=== PATIENT | female | born 1985 ===

== ENCOUNTER 2021-10-28 15:37 | Emergency (ER) | payer BC ==
[2021-10-28] MEDS ORDERED: AMOXICILLIN/K CLAV 875/125MG TAB PO ONE (19:23)
[2021-10-28] MEDS ORDERED: predniSONE 20 MG TAB PO ONE (19:24)
--- NOTE | 2021-10-28 19:27 | Emergency Department Report ---
ED ENT HPI - General Chief complaint: Medical Clearance Stated complaint: FLU LIKE SX Time Seen by Provider: 10/28/21 18:55 Source: patient Mode of arrival: Ambulatory Limitations: No Limitations - History of Present Illness Initial comments: 36-year-old white female with a past medical history of hypothyroidism presents to the emergency department for evaluation of few day history of fever, sore throat, left ear pain. She states that she went to urgent care yesterday for same symptoms and they did a COVID test and EKG, and told her that she had an abnormal EKG and she should report to the emergency department immediately. Patient denies chest pain, shortness of breath, nausea, vomiting, dizziness, and diaphoresis. MD complaint: sore throat, ear pain -: Gradual, week(s) (1) Location: L ear Severity: mild Severity scale (0 -10): 10 Quality: aching Consistency: constant Improves with: pressure Associated Symptoms: fever, cough, pain with swallowing, sore throat, discharge from ear, rhinorrhea. denies: gum swelling, toothache, tinnitus, hearing loss - Related Data Previous Rx's Medication Instructions Recorded Last Taken Type Amoxicillin/Potassium Clav 1 each PO BID #14 tab 10/28/21 Unknown Rx [Augmentin 875-125 Tablet] methylPREDNISolone [Medrol 4MG 4 mg PO DAILY #1 pack 10/28/21 Unknown Rx DOSEPAK (21 tabs)] Allergies Allergy/AdvReac Type Severity Reaction Status Date / Time hydromorphone [From Dilaudid] Allergy Hives Verified 10/28/21 18:05 ED Dental HPI - General Chief complaint: Medical Clearance Stated complaint: FLU LIKE SX Time Seen by Provider: 10/28/21 18:55 Source: patient Mode of arrival: Ambulatory Limitations: No Limitations - Related Data Previous Rx's Medication Instructions Recorded Last Taken Type Amoxicillin/Potassium Clav 1 each PO BID #14 tab 10/28/21 Unknown Rx [Augmentin 875-125 Tablet] methylPREDNISolone [Medrol 4MG 4 mg PO DAILY #1 pack 10/28/21 Unknown Rx DOSEPAK (21 tabs)] Allergies Allergy/AdvReac Type Severity Reaction Status Date / Time hydromorphone [From Dilaudid] Allergy Hives Verified 10/28/21 18:05 ED Review of Systems ROS: Stated complaint: FLU LIKE SX Other details as noted in HPI Comment: All other systems reviewed and negative Constitutional: chills, fever Eyes: denies: eye discharge ENT: ear pain, throat pain, congestion Respiratory: cough. denies: shortness of breath, SOB with exertion, SOB at rest, wheezing Cardiovascular: denies: chest pain, palpitations, dyspnea on exertion Gastrointestinal: abdominal pain. denies: nausea, vomiting Genitourinary: denies: urgency, dysuria Musculoskeletal: denies: back pain Skin: denies: rash, lesions Neurological: headache ED Past Medical Hx - Past Medical History Previous Medical History?: Yes Additional medical history: hypothyroid - Medications Home Medications: Home Medications Medication Instructions Recorded Confirmed Last Taken Type Amoxicillin/Potassium Clav 1 each PO BID #14 tab 10/28/21 Unknown Rx [Augmentin 875-125 Tablet] methylPREDNISolone [Medrol 4MG 4 mg PO DAILY #1 pack 10/28/21 Unknown Rx DOSEPAK (21 tabs)] ED Physical Exam - General Limitations: No Limitations General appearance: alert, in no apparent distress - Head Head exam: Present: atraumatic, normocephalic - Eye Eye exam: Present: normal appearance. Absent: conjunctival injection - Expanded ENT Exam Expanded TM/Canal exam: Erythema: Left TM, Effusion: Left TM Mouth exam: Present: normal external inspection Teeth exam: Present: normal inspection Throat exam: Positive: tonsillar erythema. Negative: normal inspection (Erythema noted to posterior oropharynx), tonsillomegaly, tonsillar exudate, R peritonsillar mass, L peritonsillar mass - Neck Neck exam: Present: normal inspection, full ROM, lymphadenopathy. Absent: tenderness - Respiratory Respiratory exam: Present: normal lung sounds bilaterally. Absent: respiratory distress, wheezes, rales, rhonchi, stridor, chest wall tenderness - Cardiovascular Cardiovascular Exam: Present: regular rate, normal heart sounds - GI/Abdominal GI/Abdominal exam: Present: soft, normal bowel sounds. Absent: distended, tenderness, guarding, rebound, rigid - Extremities Exam Extremities exam: Present: normal inspection, normal capillary refill. Absent: full ROM, pedal edema, joint swelling, calf tenderness - Back Exam Back exam: Present: normal inspection. Absent: CVA tenderness (R), CVA tenderness (L) - Neurological Exam Neurological exam: Present: alert, oriented X3 - Psychiatric Psychiatric exam: Present: normal affect, normal mood - Skin Skin exam: Present: warm, dry, intact, normal color ED Course Vital Signs 10/28/21 18:04 Temperature 98.4 F Pulse Rate 86 Respiratory 16 Rate Blood Pressure 139/91 O2 Sat by Pulse 100 Oximetry ED Medical Decision Making - EKG Data Interpretation: no acute changes, normal EKG - Medical Decision Making 36-year-old white female with a past medical history of hypothyroidism presents to the emergency department for evaluation of few day history of fever, sore throat, left ear pain. She states that she went to urgent care yesterday for same symptoms and they did a COVID test and EKG, and told her that she had an abnormal EKG and she should report to the emergency department immediately. Patient denies chest pain, shortness of breath, nausea, vomiting, dizziness, and diaphoresis. No gross abnormalities noted on exam. Patient noted to have left otitis media. No acute ischemic changes noted on EKG. Patient will be treated for otitis media and advised to follow-up with cardiology for further evaluation and management. She is advised to return to the emergency department for any concerning symptoms. She verbalized understanding of and agreement with plan of care. Critical care attestation.: If time is entered above; I have spent that time in minutes in the direct care of this critically ill patient, excluding procedure time. ED Disposition Clinical Impression: Otitis media Qualifiers: Otitis media type: suppurative Chronicity: acute Laterality: left Recurrence: non-recurrent Spontaneous tympanic membrane rupture: without spontaneous rupture Qualified Code(s): H66.002 - Acute suppurative otitis media without spontaneous rupture of ear drum, left ear Disposition: 01 HOME / SELF CARE / HOMELESS Is pt being admited?: No Does the pt Need Aspirin: No Condition: Stable Instructions: Otitis Media, Adult, [id number] Additional Instructions: Take medications as prescribed. Follow-up with primary care provider if no improvement or worsening symptoms. Follow-up with cardiology for further evaluation and management. Return to the emergency department as needed. Prescriptions: Amoxicillin/Potassium Clav [Augmentin 875-125 Tablet] 1 each PO BID #14 tab methylPREDNISolone [Medrol 4MG DOSEPAK (21 tabs)] 4 mg PO DAILY #1 pack Referrals: SUJATHA TORRES MD [Staff Physician] - 3-5 Days VIELKA LYNCH MD [Staff Physician] - 3-5 Days Forms: Work/School Release Form(ED) Time of Disposition: 19:27
[2021-10-28 20:22] VITALS: BP 132/77
--- NOTE | 2021-10-29 10:49 | Electrocardiograph Report ---
[facility] Test Date: 2021-10-28 Test Time: 18:10:25 Pat Name: ESTELLE YANG Department: Room: Gender: F Bi Manager: GIANLUCA : 1985 Requested By: JUN MICHELLE Order Number: [id number] Reading MD: Jaleel Ruvalcaba Measurements Intervals [place] Rate: 74 P: 70 LA: 145 QRS: 24 QRSD: 79 T: 58 QT: 366 QTc: 406 Interpretive Statements Sinus rhythm Biatrial enlargement No previous ECG available for comparison Electronically Signed On 10-29-2021 10:48:52 EDT by Jaleel Ruvalcaba
== END 2021-10-28 20:20 | disposition home or self-care (01) ==
LOC: ED 15:37
DX: H66.92 Otitis media, unspecified, left ear (principal); Z88.8 Allergy status to other drugs, medicaments and biological substances
CPT/HCPCS: 93005; 99282

== ENCOUNTER 2022-01-06 20:20 | Emergency (ER) | payer BC ==
[2022-01-06 23:16] VITALS: BP 141/82
--- NOTE | 2022-01-06 23:45 | Emergency Department Report ---
ED General Adult HPI - General Chief complaint: Anxiety Stated complaint: CHEST PAIN PUI?: No Time Seen by Provider: 01/06/22 22:59 Source: patient Mode of arrival: Ambulatory Limitations: No Limitations - History of Present Illness Initial comments: 36-year-old female presents for evaluation of what she states is "an anxiety at tack." Patient reports she recently broke up with her boyfriend after having moved from [place]. She states she is been having increasing amounts of stress at work and believes these in accumulation may be causing her symptoms. She also persistently states she believes that she is hearing or perceiving a radioactive signals coming from her left ear. Per triage nurse, the patient informed her that she believes that her ex-boyfriend is a spy for the and has been "tracking" me" Patient denies any chest pain shortness of breath or difficulty breathing. She denies any tobacco alcohol or illicit drug usage. Pain currently 0-10.. Radiation: non-radiation Severity scale (0 -10): 0 Quality: other (n/a) Improves with: none Worsens with: none Associated Symptoms: denies: denies other symptoms, confusion, chest pain, cough, diaphoresis, fever/chills, headaches, loss of appetite, malaise - Related Data Previous Rx's Medication Instructions Recorded Last Taken Type Amoxicillin/Potassium Clav 1 each PO BID #14 tab 10/28/21 Unknown Rx [Augmentin 875-125 Tablet] methylPREDNISolone [Medrol 4MG 4 mg PO DAILY #1 pack 10/28/21 Unknown Rx DOSEPAK (21 tabs)] Allergies Allergy/AdvReac Type Severity Reaction Status Date / Time hydromorphone [From Dilaudid] Allergy Hives Verified 10/28/21 18:05 ED Review of Systems ROS: Stated complaint: CHEST PAIN Other details as noted in HPI Comment: All other systems reviewed and negative Constitutional: no symptoms reported. denies: chills, diaphoresis, fever, malaise Eyes: denies: eye pain, eye discharge, vision change ENT: ear pain. denies: throat pain, dental pain, hearing loss, epistaxis, congestion Respiratory: denies: cough, orthopnea, shortness of breath, SOB with exertion, SOB at rest, stridor Cardiovascular: palpitations. denies: chest pain, dyspnea on exertion, orthopnea, edema, syncope, paroxysmal nocturnal dyspnea, other Endocrine: see HPI. denies: excessive sweating, intolerance to cold, intolerance to heat, increased hunger, increased thirst, increased urine, unexplained weight gain, unexplained weight loss, other Gastrointestinal: denies: abdominal pain, nausea, vomiting, diarrhea, constipation, hematemesis, melena, hematochezia Genitourinary: denies: urgency, dysuria, frequency, hematuria, discharge, abnormal menses, dyspareunia, other Musculoskeletal: denies: back pain, joint swelling, arthralgia, myalgia, other Skin: denies: rash, lesions, change in color, change in hair/nails, pruritus Neurological: denies: headache, weakness, numbness, paresthesias, confusion, abnormal gait, vertigo, other Psychiatric: anxiety, depression. denies: auditory hallucinations, visual hallucinations, homicidal thoughts, suicidal thoughts Hematological/Lymphatic: denies: easy bleeding, easy bruising, swollen glands ED Past Medical Hx - Past Medical History Previous Medical History?: Yes Additional medical history: hypothyroid - Surgical History Past Surgical History?: Yes Additional Surgical History: jaw surgery, plastic surgery - Social History Smoking Status: Never Smoker Substance Use Type: Alcohol - Medications Home Medications: Home Medications Medication Instructions Recorded Confirmed Last Taken Type Amoxicillin/Potassium Clav 1 each PO BID #14 tab 10/28/21 Unknown Rx [Augmentin 875-125 Tablet] methylPREDNISolone [Medrol 4MG 4 mg PO DAILY #1 pack 10/28/21 Unknown Rx DOSEPAK (21 tabs)] ED Physical Exam - General Limitations: No Limitations General appearance: alert, anxious - Head Head exam: Present: atraumatic, normocephalic, normal inspection - Eye Eye exam: Present: normal appearance, PERRL, EOMI Pupils: Present: normal accommodation - ENT ENT exam: Present: normal exam, mucous membranes moist, normal external ear exam - Neck Neck exam: Present: normal inspection, full ROM. Absent: tenderness, meningismus, lymphadenopathy, thyromegaly - Respiratory Respiratory exam: Present: normal lung sounds bilaterally - Cardiovascular Cardiovascular Exam: Present: regular rate, tachycardia, normal heart sounds. Absent: normal rhythm, bradycardia, irregular rhythm, systolic murmur, diastolic murmur, rubs, gallop, clicks, JVD, S3, S4, other - GI/Abdominal GI/Abdominal exam: Present: soft, normal bowel sounds. Absent: distended, tenderness, guarding, rebound, rigid, diminished bowel sounds, hyperactive bowel sounds, hypoactive bowel sounds, mass, bruit, pulsatile mass, hernia - Extremities Exam Extremities exam: Present: normal inspection, full ROM, normal capillary refill. Absent: tenderness, pedal edema, joint swelling, calf tenderness - Neurological Exam Neurological exam: Present: alert, oriented X3, CN II-XII intact, normal gait, motor sensory deficit, reflexes normal - Psychiatric Psychiatric exam: Present: anxious, other (very tearful; pt denies SI/HI) - Skin Skin exam: Present: warm, dry, intact, normal color ED Course Vital Signs 01/06/22 01/06/22 21:02 23:16 Temperature 97.5 F L 98.6 F Pulse Rate 75 163 H Respiratory 18 20 Rate Blood Pressure 130/84 141/82 [Left] O2 Sat by Pulse 100 100 Oximetry - Reevaluation(s) Reevaluation #1: 01/07/22 00:52 12:50am: [employer] barrier attendant reports the pt was observe walking out of the ER. ED Medical Decision Making - EKG Data -: EKG Interpreted by Me EKG shows normal: sinus rhythm, axis, intervals, QRS complexes, ST-T waves Rate: tachycardia - EKG Data When compared to previous EKG there are: previous EKG unavailable Interpretation: other (Ventricular rate 142 bpm. Patient has discernible P waves the procedure QRS complex. Patient has ST depressions in lateral leads but the EKG has poor baseline but demonstrates questionable ST depressions in lateral leads, repeat EKG to be obtained and patient verbalized understanding and agreement) - Medical Decision Making 36-year-old female presents for evaluation of what she states is "an anxiety attack", ringing in her left ear, and was found to have sinus tachycardia in the emergency department today. I spoke to the patient upon her presentation to triage and repeatedly request that she permit a repeat EKG to be obtained given that her initial EKG was difficult to interpret. Patient also informed that serum labs and chest x-ray will be ordered as well to rule out underlying electrolyte abnormalities which may be contributing to her symptoms and she will undergo reassessment once she is transported back to the emergency department formally. The patient verbalized understanding and agreement. 12:50am: [employer] barrier attendant reports informed this MD provider that the pt refused lab work, repeat ekg, and cxr. Pt was observed walking out. Pt eloped. Critical care attestation.: If time is entered above; I have spent that time in minutes in the direct care of this critically ill patient, excluding procedure time. ED Disposition Clinical Impression: Sinus tachycardia Disposition: LEFT AWOL/ELOPED Is pt being admited?: No Does the pt Need Aspirin: No Condition: Serious
--- NOTE | 2022-01-07 09:18 | Electrocardiograph Report ---
[facility] Test Date: 2022-01-06 Test Time: 21:15:33 Pat Name: ESTELLE YANG Department: Room: Gender: F Supervisor Cytogenetic Laboratory: [facility] : 1985 Requested By: SHANNAN MERCADO Order Number: [id number] Reading MD: Ottoniel Cheatham Measurements Intervals [place] Rate: 142 P: 86 ID: [id number] QRS: -6 QRSD: 83 T: 7 QT: 290 QTc: 445 Interpretive Statements Sinus tachycardia LAE, consider biatrial enlargement RSR' IN V1 OR V2, PROBABLY NORMAL VARIANT Compared to ECG 10/28/2021 18:10:25 Sinus rhythm no longer present Electronically Signed On 01-07-2022 9:18:29 EDT by Ottoniel Cheatham
== END 2022-01-07 00:58 | disposition left against medical advice (07) ==
LOC: ED 20:20
DX: R00.0 Tachycardia, unspecified (principal); F10.20 Alcohol dependence, uncomplicated
CPT/HCPCS: 93005; 99281; 99282